=== PATIENT | female | born 1960 | race Caucasian/White ===

== ENCOUNTER 2016-08-24 20:40 | Inpatient (IN) | payer MEDICAID, OTHER ==
[~2016-08-24] VITALS: Ht 170.2 cm; Wt 84.5 kg
[~2016-08-24 20:40] MED LIST: CLON1 PO; NORCO PO
[2016-08-24] MEDS ORDERED: LORA0.5T2 PO (20:52)
[2016-08-24] MEDS ORDERED: BUSP10TA23 PO (20:52)
[2016-08-24 22:09] LABS: BASOPHILS # (AUTO) 0.02 K/uL (0.00-0.20); BASOPHILS % (AUTO) 0.3 % (0.0-2.0); EOSINOPHILS # (AUTO) 0.13 K/uL (0.00-0.70); EOSINOPHILS % (AUTO) 2.53 % (1.0-6.0); HEMATOCRIT 41.2 % (36-46); HEMOGLOBIN 13.6 g/dL (12.0-16.0); LYMPHOCYTES # (AUTO) 1.2 K/uL (1.0-4.8); MEAN CORPUSCULAR HEMOGLOBIN 28.1 pg (26.0-34.0); MEAN CORPUSCULAR VOLUME 85 fL (80-100); MONOCYTES # (AUTO) 0.3 K/uL (0.1-1.0); MONOCYTES % (AUTO) 5.7 % (2.0-9.0); NEUTROPHILS # (AUTO) 3.4 K/uL (1.8-7.7); NEUTROPHILS % (AUTO) 67.5 % (40.0-70.0); PLATELET COUNT (AUTO) 174 K/uL (150-450); RED BLOOD CELL COUNT(AUTO) 4.83 MIL/uL (4.00-5.20); RED CELL DISTRIBUTION WIDTH 12.6 % (11.5-14.5); WHITE BLOOD COUNT (AUTO) 5.1 K/uL (4.5-11.0)
[2016-08-24 22:21] LABS: PROTHROMBIN TIME 10.9 SEC (9.4-11.6)
[2016-08-24 22:23] LABS: ANION GAP 12 mmol/L (8-16); CALCIUM, TOTAL 9.8 mg/dL (8.8-10.5); CARBON DIOXIDE 27 mmol/L (22-29); CHLORIDE 99 mmol/L (98-107); CREATININE 1.12 mg/dL (0.60-1.30); GLOMERULAR FILTR. RATE CALC 51 mL/min (>60); POTASSIUM 3.2 mmol/L (3.5-5.1); SODIUM SERUM 138 mmol/L (136-145); UREA NITROGEN, BLOOD 18 mg/dL (7-18)
[2016-08-24 22:44] LABS: SALICYLATE < 2.8 mg/dL (2.8-20.0)
[2016-08-24 22:47] LABS: ALANINE AMINOTRANSFERASE 55 U/L (12-78); ALBUMIN 4.6 g/dL (3.4-5.0); ASPARTATE AMINOTRANSFERASE 41 U/L (15-37); CREATINE KINASE MB 4.1 ng/mL (0-5); CREATINE KINASE, TOTAL 141 U/L (26-192); TOTAL PROTEIN, SERUM 8.5 g/dL (6.4-8.2)
[2016-08-24 22:47] LABS: APPEARANCE,URINE CLEAR (CLEAR); GLUCOSE, URINE (UA) NEGATIVE (NEGATIVE); KETONES,URINE 15 mg/dL (NEGATIVE); LEUKOCYTE ESTERASE ,URINE NEGATIVE (NEGATIVE); OCCULT BLOOD,URINE NEGATIVE (NEGATIVE); PROTEIN,URINE NEGATIVE (NEGATIVE)
[2016-08-24 22:51] LABS: ADD UA MICROSCOPIC NO
[2016-08-24] MEDS ORDERED: LOSA-30 PO (22:53)
[2016-08-24] MEDS ORDERED: LORA1TAB3 PO (22:53)
[2016-08-24] MEDS ORDERED: MOME13HF2 IH (22:53)
[2016-08-24] MEDS ORDERED: ACLI400A2 IH (22:53)
[2016-08-24] MEDS ORDERED: AMLO-512 PO (22:53)
[2016-08-24] MEDS ORDERED: QUET200T PO (22:53)
[2016-08-24 22:58] LABS: ACETAMINOPHEN < 2 mcg/mL (10-30)
[2016-08-24] MEDS ORDERED: POTASSIUM CHLORIDE 20 MEQ ER TABLET PO ONE (23:00)
[2016-08-25] MEDS ORDERED: OLANZapine 5 MG RAPDIS TABLET PO PRN (00:15)
[2016-08-25] MEDS ORDERED: PNEUMOCOCCAL VACCINE POLYVALENT 0.5 ML VIAL [PPSV23] IM ONE (02:15)
[2016-08-25 08:38] VITALS: BP 112/68
[2016-08-25 09:02] LABS: POTASSIUM 3.7 mmol/L (3.5-5.1); THYROID STIMULATING HORMONE 0.76 uIU/mL (0.36-3.74)
[2016-08-25] MEDS ORDERED: LOPERAMIDE HCL 2 MG CAPSULE PO PRN ×2 (10:45→13:30)
[2016-08-25] MEDS ORDERED: PROMETHAZINE HCL 25 MG TABLET PO PRN (13:30)
[2016-08-25] MEDS ORDERED: MAGNESIUM HYDROXIDE SUSPENSION 30 ML UDCUP PO PRN (13:30)
[2016-08-25] MEDS ORDERED: HydrOXYzine PAMOATE 50 MG CAPSULE PO PRN (13:30)
[2016-08-25] MEDS ORDERED: GuaiFENesin/D-METHORPHAN [SUGAR-FREE] 200-20MG/10 ML SYRUP UDCUP PO PRN (13:30)
[2016-08-25] MEDS ORDERED: ACETAMINOPHEN 325 MG TABLET PO PRN ×2 (13:30→19:00)
[2016-08-25] MEDS ORDERED: TUBERCULIN, PURIFIED PROTEIN DERIVATIVE 5 TU/0.1 ML SYG ID ONE (13:30)
[2016-08-25 16:00] VITALS: BP 109/78
[2016-08-25] MEDS: THIAMINE HCL 100 MG TABLET PO SCH (16:40)
[2016-08-25] MEDS: QUEtiapine FUMARATE 100 MG TABLET PO PRN (16:40)
[2016-08-25] MEDS: QUEtiapine FUMARATE 200 MG TABLET PO SCH (20:44)
[2016-08-26 03:08] VITALS: BP 101/76
[2016-08-26] MEDS: IBUPROFEN 400 MG TABLET PO PRN ×2 (03:12→17:05)
[2016-08-26 08:44] VITALS: BP 129/64
[2016-08-26] MEDS: THIAMINE HCL 100 MG TABLET PO SCH ×2 (09:07→16:29)
[2016-08-26] MEDS: MULTIVITAMINS WITH MINERALS, THERAPEUTIC TABLET PO SCH (09:07)
[2016-08-26] MEDS: FOLIC ACID 1 MG TABLET PO SCH (09:07)
[2016-08-26] MEDS: NALTREXONE HCL 50 MG TABLET PO SCH (09:07)
[2016-08-26] MEDS: LORazepam 2 MG TABLET PO PRN (11:43)
[2016-08-26 16:00] VITALS: BP 127/84
[2016-08-26 17:05] VITALS: BP 120/86
[2016-08-26] MEDS: QUEtiapine FUMARATE 25 MG TABLET PO SCH (17:13)
[2016-08-26] MEDS: QUEtiapine FUMARATE 200 MG TABLET PO SCH (20:22)
[2016-08-27] MEDS: IBUPROFEN 400 MG TABLET PO PRN ×2 (03:25→12:46)
[2016-08-27 03:26] VITALS: BP 117/86
[2016-08-27 08:17] VITALS: BP 114/78
[2016-08-27] MEDS: FOLIC ACID 1 MG TABLET PO SCH (09:04)
[2016-08-27] MEDS: QUEtiapine FUMARATE 25 MG TABLET PO SCH ×3 (09:04→16:17)
[2016-08-27] MEDS: THIAMINE HCL 100 MG TABLET PO SCH ×2 (09:04→16:17)
[2016-08-27] MEDS: NALTREXONE HCL 50 MG TABLET PO SCH (09:04)
[2016-08-27] MEDS: MULTIVITAMINS WITH MINERALS, THERAPEUTIC TABLET PO SCH (09:04)
[2016-08-27] MEDS: LORazepam 2 MG TABLET PO PRN ×2 (09:45→16:31)
[2016-08-27] MEDS: BENZOCAINE 10% 7 GM GEL TP PRN (15:49)
[2016-08-27 16:08] VITALS: BP 140/86
[2016-08-27] MEDS: QUEtiapine FUMARATE 200 MG TABLET PO SCH (20:25)
[2016-08-27] MEDS: ZOLPIDEM TARTRATE 10 MG TABLET PO PRN (21:03)
[2016-08-28 04:39] VITALS: BP 134/89
[2016-08-28] MEDS: BENZOCAINE 10% 7 GM GEL TP PRN ×3 (04:39→17:16)
[2016-08-28 08:35] VITALS: BP 120/79
[2016-08-28] MEDS: QUEtiapine FUMARATE 25 MG TABLET PO SCH ×3 (09:09→17:00)
[2016-08-28] MEDS: MULTIVITAMINS WITH MINERALS, THERAPEUTIC TABLET PO SCH (09:09)
[2016-08-28] MEDS: NALTREXONE HCL 50 MG TABLET PO SCH (09:09)
[2016-08-28] MEDS: THIAMINE HCL 100 MG TABLET PO SCH ×2 (09:10→17:01)
[2016-08-28] MEDS: FOLIC ACID 1 MG TABLET PO SCH (09:10)
[2016-08-28] MEDS: IBUPROFEN 400 MG TABLET PO PRN ×2 (09:19→17:43)
[2016-08-28] MEDS: LORazepam 2 MG TABLET PO PRN ×3 (09:25→17:43)
[2016-08-28] MEDS: MAG HYDROX/AL HYDROX/SIMETH ES 30 ML SUSPENSION UDCUP PO PRN (14:33)
[2016-08-28 17:10] VITALS: BP 126/80
[2016-08-28] MEDS ORDERED: ACETAMINOPHEN 650 MG/20.3 ML SOLUTION UDCUP PO PRN (20:15)
[2016-08-28] MEDS: QUEtiapine FUMARATE 200 MG TABLET PO SCH (20:24)
[2016-08-28] MEDS: ZOLPIDEM TARTRATE 10 MG TABLET PO PRN (20:24)
[2016-08-28] MEDS ORDERED: ACETAMINOPHEN 325 MG TABLET PO PRN (20:45)
[2016-08-29 00:05] VITALS: BP 135/82
[2016-08-29] MEDS: BENZOCAINE 10% 7 GM GEL TP PRN (00:09)
[2016-08-29] MEDS: THIAMINE HCL 100 MG TABLET PO SCH ×2 (08:29→16:08)
[2016-08-29] MEDS: NALTREXONE HCL 50 MG TABLET PO SCH (08:29)
[2016-08-29] MEDS: QUEtiapine FUMARATE 25 MG TABLET PO SCH ×3 (08:29→16:08)
[2016-08-29] MEDS: AmLODIPine BESYLATE 10 MG TABLET PO SCH (08:29)
[2016-08-29] MEDS: MULTIVITAMINS WITH MINERALS, THERAPEUTIC TABLET PO SCH (08:30)
[2016-08-29] MEDS: FOLIC ACID 1 MG TABLET PO SCH (08:30)
[2016-08-29 08:39] VITALS: BP 118/74
[2016-08-29] MEDS: IBUPROFEN 400 MG TABLET PO PRN (08:39)
[2016-08-29] MEDS: LORazepam 2 MG TABLET PO PRN ×2 (08:39→13:38)
[2016-08-29 16:00] VITALS: BP 108/80
[2016-08-29] MEDS: QUEtiapine FUMARATE 200 MG TABLET PO SCH (20:26)
[2016-08-29] MEDS: ZOLPIDEM TARTRATE 10 MG TABLET PO PRN (21:00)
[2016-08-30 00:30] VITALS: BP 119/81
[2016-08-30] MEDS: NALTREXONE HCL 50 MG TABLET PO SCH (08:17)
[2016-08-30] MEDS: THIAMINE HCL 100 MG TABLET PO SCH ×2 (08:17→16:02)
[2016-08-30] MEDS: FOLIC ACID 1 MG TABLET PO SCH (08:18)
[2016-08-30] MEDS: QUEtiapine FUMARATE 25 MG TABLET PO SCH ×3 (08:18→16:02)
[2016-08-30] MEDS: MULTIVITAMINS WITH MINERALS, THERAPEUTIC TABLET PO SCH (08:18)
[2016-08-30] MEDS: AmLODIPine BESYLATE 10 MG TABLET PO SCH (08:18)
[2016-08-30 08:42] VITALS: BP 129/91
[2016-08-30] MEDS: LORazepam 2 MG TABLET PO PRN ×2 (08:55→16:02)
[2016-08-30 11:48] VITALS: BP 120/84
[2016-08-30] MEDS: IBUPROFEN 400 MG TABLET PO PRN (11:48)
[2016-08-30] MEDS: BENZOCAINE 10% 7 GM GEL TP PRN (11:49)
[2016-08-30 16:26] VITALS: BP 128/86
[2016-08-30] MEDS: QUEtiapine FUMARATE 200 MG TABLET PO SCH (20:06)
[2016-08-30] MEDS: ZOLPIDEM TARTRATE 10 MG TABLET PO PRN (21:07)
[2016-08-31 00:05] VITALS: BP 118/78
[2016-08-31] MEDS: LORazepam 2 MG TABLET PO PRN ×4 (00:06→19:38)
[2016-08-31] MEDS: QUEtiapine FUMARATE 25 MG TABLET PO SCH ×3 (06:18→16:29)
[2016-08-31] MEDS: MULTIVITAMINS WITH MINERALS, THERAPEUTIC TABLET PO SCH (08:05)
[2016-08-31] MEDS: THIAMINE HCL 100 MG TABLET PO SCH ×2 (08:05→16:29)
[2016-08-31] MEDS: NALTREXONE HCL 50 MG TABLET PO SCH (08:05)
[2016-08-31] MEDS: AmLODIPine BESYLATE 10 MG TABLET PO SCH (08:06)
[2016-08-31] MEDS: FOLIC ACID 1 MG TABLET PO SCH (08:06)
[2016-08-31] MEDS: IBUPROFEN 400 MG TABLET PO PRN (08:06)
[2016-08-31 08:10] VITALS: BP 110/67
[2016-08-31] MEDS ORDERED: NALT50 PO (08:32)
[2016-08-31] MEDS ORDERED: QUET25TA PO (08:45)
[2016-08-31] MEDS ORDERED: NALTREXONE HCL 50 MG TABLET PO SCH (09:00)
[2016-08-31 16:00] VITALS: BP 112/69
[2016-08-31] MEDS: QUEtiapine FUMARATE 200 MG TABLET PO SCH (20:24)
[2016-08-31] MEDS ORDERED: QUEtiapine FUMARATE 200 MG TABLET PO SCH (21:00)
[2016-08-31] MEDS: ZOLPIDEM TARTRATE 10 MG TABLET PO PRN (21:07)
[2016-09-01 02:13] VITALS: BP 117/71
[2016-09-01] MEDS: QUEtiapine FUMARATE 25 MG TABLET PO SCH ×3 (06:27→16:34)
[2016-09-01 08:58] VITALS: BP 103/53
[2016-09-01] MEDS: THIAMINE HCL 100 MG TABLET PO SCH ×2 (09:11→16:34)
[2016-09-01] MEDS: FOLIC ACID 1 MG TABLET PO SCH (09:12)
[2016-09-01] MEDS: LORazepam 2 MG TABLET PO PRN ×2 (09:12→16:34)
[2016-09-01] MEDS: MULTIVITAMINS WITH MINERALS, THERAPEUTIC TABLET PO SCH (09:12)
[2016-09-01 09:15] VITALS: BP 111/64
[2016-09-01] MEDS: AmLODIPine BESYLATE 10 MG TABLET PO SCH (09:19)
[2016-09-01] MEDS: NALTREXONE HCL 50 MG TABLET PO SCH (12:21)
[2016-09-01 16:15] VITALS: BP 120/78
[2016-09-01] MEDS: QUEtiapine FUMARATE 100 MG TABLET PO PRN (18:20)
[2016-09-01] MEDS: QUEtiapine FUMARATE 200 MG TABLET PO SCH (20:18)
[2016-09-01] MEDS: ZOLPIDEM TARTRATE 10 MG TABLET PO PRN (21:07)
[2016-09-02 00:36] VITALS: BP 124/74
[2016-09-02] MEDS: LORazepam 2 MG TABLET PO PRN ×2 (00:37→09:19)
[2016-09-02] MEDS: MAG HYDROX/AL HYDROX/SIMETH ES 30 ML SUSPENSION UDCUP PO PRN (03:05)
[2016-09-02] MEDS: QUEtiapine FUMARATE 25 MG TABLET PO SCH ×2 (06:22→12:42)
[2016-09-02 08:18] VITALS: BP 116/79
[2016-09-02] MEDS: NALTREXONE HCL 50 MG TABLET PO SCH (08:25)
[2016-09-02] MEDS: THIAMINE HCL 100 MG TABLET PO SCH (08:25)
[2016-09-02] MEDS: AmLODIPine BESYLATE 10 MG TABLET PO SCH (08:25)
[2016-09-02] MEDS: MULTIVITAMINS WITH MINERALS, THERAPEUTIC TABLET PO SCH (08:25)
[2016-09-02] MEDS: FOLIC ACID 1 MG TABLET PO SCH (08:25)
== END 2016-09-02 13:30 | disposition home or self-care (01) | DRG 750 ==
LOC: EMS 20:41 → B3A 08-25 00:10
PROVIDERS: ADMIT Psychiatry & Neurology Psychiatry; ATTEND Psychiatry & Neurology Psychiatry
DX: F25.9 Schizoaffective disorder, unspecified (principal); G93.41 Metabolic encephalopathy; F11.20 Opioid dependence, uncomplicated; F15.20 Other stimulant dependence, uncomplicated; F43.10 Post-traumatic stress disorder, unspecified; F17.200 Nicotine dependence, unspecified, uncomplicated; J44.9 Chronic obstructive pulmonary disease, unspecified; I10 Essential (primary) hypertension; E87.6 Hypokalemia; J45.909 Unspecified asthma, uncomplicated; R74.0 Nonspecific elevation of levels of transaminase and lactic acid dehydrogenase [LDH]; T43.592A Poisoning by other antipsychotics and neuroleptics, intentional self-harm, initial encounter; Y92.009 Unspecified place in unspecified non-institutional (private) residence as the place of occurrence of the external cause; Z91.14 Patient's other noncompliance with medication regimen; Z23 Encounter for immunization
CPT/HCPCS: 51702; 84132; 84439; 84443; 87040; 90471; 93005; 96372; 99285; G0480; G0481